=== PATIENT | male | born 1955 | race African-American/Black ===

== ENCOUNTER 2019-09-29 02:14 | Emergency (ER) | payer OTHER ==
[~2019-09-29] VITALS: Ht 182.9 cm; Wt 68.2 kg
[2019-09-29 04:28] VITALS: BP 133/90
== END 2019-09-29 04:28 | disposition home or self-care (01) ==
LOC: EMS 02:15
DX: T83.86XA Thrombosis due to genitourinary prosthetic devices, implants and grafts, initial encounter (principal); Y84.6 Urinary catheterization as the cause of abnormal reaction of the patient, or of later complication, without mention of misadventure at the time of the procedure; Y73.8 Miscellaneous gastroenterology and urology devices associated with adverse incidents, not elsewhere classified
CPT/HCPCS: Z7502